=== PATIENT | male | born 1950 | race Asian ===

== ENCOUNTER 2021-02-02 07:20 | Day surgery (SDC) | payer OTHER, BC ==
[2021-01-30 16:36] VITALS: BMI 24.2
[2021-02-02] MEDS ORDERED: PROPOFOL 20 ML ONE ×3 (07:58)
[2021-02-02] MEDS ORDERED: LIDOCAINE HCL/PF 2% SDV 5ML VIAL ONE (07:58)
[2021-02-02] MEDS ORDERED: GLUCAGON 1 MG KIT ONE (08:32)
[2021-02-02 09:20] VITALS: TEMP 97.6
[2021-02-02 09:23] VITALS: BP 107/78; PULSE 89
== END 2021-02-02 09:40 | disposition home or self-care (01) ==
LOC: FASU-ENDO 07:20
PROVIDERS: ATTEND Internal Medicine Gastroenterology
PROC: 0DBK8ZX Excision of Ascending Colon, Via Natural or Artificial Opening Endoscopic, Diagnostic (ICD-10-PCS; 2021-02-02)
PROC: 0DBH8ZX Excision of Cecum, Via Natural or Artificial Opening Endoscopic, Diagnostic (ICD-10-PCS; principal; 2021-02-02 08:23)
DX: Z12.11 Encounter for screening for malignant neoplasm of colon (principal); D12.0 Benign neoplasm of cecum; D12.2 Benign neoplasm of ascending colon; K57.30 Diverticulosis of large intestine without perforation or abscess without bleeding; Z86.010 Personal history of colon polyps; Z80.0 Family history of malignant neoplasm of digestive organs
CPT/HCPCS: 88305-TC